=== PATIENT | male | born 1945 ===

== ENCOUNTER 2024-09-15 09:38 | Emergency (ER) | payer OTHER ==
[~2024-09-15] VITALS: Ht 180.3 cm; Wt 92.9 kg
[2024-09-15] MEDS ORDERED: FURO20TA5 PO (09:54)
[2024-09-15] MEDS ORDERED: LACT10SO10 PO (09:54)
[2024-09-15] MEDS ORDERED: HYDR10TA31 PO (09:54)
[2024-09-15] MEDS ORDERED: ASPI-1444 PO (09:54)
[2024-09-15] MEDS ORDERED: MELA3TAB89 PO (09:54)
[2024-09-15] MEDS ORDERED: RIFAX550 PO (09:54)
[2024-09-15] MEDS ORDERED: CARB1TAB36 PO (09:54)
[2024-09-15] MEDS ORDERED: CALC-1271 PO (09:54)
[2024-09-15] MEDS ORDERED: LACT1CAP58 PO (09:54)
[2024-09-15] MEDS ORDERED: CHOL25TA4 PO (09:54)
[2024-09-15] MEDS ORDERED: FINA-27 PO (09:54)
[2024-09-15] MEDS ORDERED: INSLAN SQ ×2 (09:54)
[2024-09-15] MEDS ORDERED: INSU100V SQ (09:54)
[2024-09-15] MEDS ORDERED: SPIR-37 PO (09:54)
[2024-09-15] MEDS ORDERED: METO25 PO (09:54)
[2024-09-15] MEDS ORDERED: TAMS0.4C94 PO (09:54)
[2024-09-15 10:12] LABS: BASOPHILS % (AUTO) 0.4 % (0.0-2.0); EOSINOPHILS % (AUTO) 1.9 % (1.0-6.0); HEMOGLOBIN 8.9 g/dL (13.5-17.5); LYMPHOCYTES # (AUTO) 0.7 K/uL (1.0-4.8); LYMPHOCYTES % (AUTO) 6.9 % (22.0-44.0); MEAN CORPUSCULAR HEMOGLOBIN 34.1 pg (26.0-34.0); MEAN CORPUSCULAR HGB CONC 34.1 G/dL (31.0-37.0); MEAN CORPUSCULAR VOLUME 100 fL (80-100); MONOCYTES # (AUTO) 0.7 K/uL (0.1-1.0); MONOCYTES % (AUTO) 6.9 % (2.0-9.0); NEUTROPHILS # (AUTO) 8.5 K/uL (1.8-7.7); NEUTROPHILS % (AUTO) 83.9 % (40.0-70.0); RED CELL DISTRIBUTION WIDTH 15.9 % (11.5-14.5); WHITE BLOOD COUNT (AUTO) 10.1 K/uL (4.5-11.0)
[2024-09-15 10:18] LABS: ANION GAP 2 mmol/L (8-16); CALCIUM, TOTAL 7.8 mg/dL (8.8-10.5); CARBON DIOXIDE 30 mmol/L (22-29); CHLORIDE 100 mmol/L (98-107); CREATININE 1.29 mg/dL (0.60-1.30); GLOMERULAR FILTR. RATE CALC 54 mL/min (>60); GLUCOSE,RANDOM 204 mg/dL (70-110); POTASSIUM 4.5 mmol/L (3.5-5.1); SODIUM SERUM 132 mmol/L (136-145); UREA NITROGEN, BLOOD 22 mg/dL (7-18)
[2024-09-15 10:22] LABS: PROTHROMBIN TIME 11.1 SEC (9.4-11.6)
[2024-09-15 10:24] LABS: ALBUMIN 1.8 g/dL (3.4-5.0); ALKALINE PHOSPHATASE 103 U/L (46-116); ASPARTATE AMINOTRANSFERASE 24 U/L (15-37); BILIRUBIN,TOTAL 2.6 mg/dL (0.1-1.0); TOTAL PROTEIN, SERUM 5.1 g/dL (6.4-8.2)
[2024-09-15 10:25] LABS: TROPONIN I-HIGH SENSITIVITY 21 ng/L (<76)
[2024-09-15 10:34] LABS: ALANINE AMINOTRANSFERASE < 6 U/L (12-78)
[2024-09-15 10:44] LABS: PLATELET COUNT (AUTO) 83 K/uL (150-450)
[2024-09-15] MEDS: FentaNYL CITRATE PF 100 MCG/2 ML VIAL IVP ONE (10:58)
[2024-09-15 11:27] VITALS: BP 138/92; PULSE 103; RESP 15; TEMP 98.8; O2SAT 98
== END 2024-09-15 11:22 | disposition short-term general hospital (02) ==
LOC: EMS 09:42
DX: I63.9 Cerebral infarction, unspecified (principal); M79.602 Pain in left arm; M79.605 Pain in left leg; R29.810 Facial weakness; I25.2 Old myocardial infarction; I48.91 Unspecified atrial fibrillation; Z79.82 Long term (current) use of aspirin
CPT/HCPCS: 99291; 70496; 96374; 71045; 80053; 84484; 85025; 85610; 85730; 36415; 70498; 82948; 93005; 70450; J3010